=== PATIENT | male | born 1950 | race Caucasian/White ===

== ENCOUNTER 2017-11-22 08:15 | Outpatient (RCR) | payer MEDICARE ==
--- NOTE | 2017-10-17 12:35 | PT INITIAL EVALUATION ---
MEDICAL DIAGNOSIS: Vestibular Hypofunction, Vestibular Schwannoma TREATMENT DIAGNOSIS: Vestibular Hypofunction, Vestibular Schwannoma DATE OF ONSET: 10/08/17 SUBJECTIVE: Pt is a 67 year-old male presenting to PT following a recent diagnosis of left acoustic neuroma resulting in decreased balance as well as hearing loss. Pt was diagnosed via MRI on initially on 09/12/17 and was referred to a specialist on 10/08/17 where the mass was further analyzed. Pt seeks to avoid surgical or radiation intervention through undergoing vestibular up-training assuming the mass is slow growing. Pt reports that his symptoms started approximately 6 months prior and that the hearing and decreased balance has been progressively worsening. Pt received hearing aids within the last month which help. Pt denies any onset of nausea, but reports frequent stumbling with ambulation. Balance is decreased further in dark rooms, when making sharp turns, and in the shower when he has to close his eyes. Pt reports no onset of dizziness with changes in position. REHAB PROBLEM LIST: Decreased Balance Decreased Function Decreased ADL's Decreased Mobility Decreased Gait PREVIOUS MEDICAL HISTORY: See EMR OCCUPATION: Retired Computing Architect OBJECTIVE: Pt has minimal nystagmus from return from lateral gaze B, no resting nystagmus. Special Tests: Corona Halpike (-) B, Vetebral Artery test (-) B Gait: 6 Min Walk Test: 6 laps, gait significant for UE reaching for support on objects, wide EVANGELINA and L trunk leaning and lateral sway. Balance: 4 Stage Balance Test: EO highest level-tandem R 9 sec, L 10 sec, EC- NBOS 4 sec. Other Objective Findings: Dizziness Handicap Inventory (DHI): 38/100 ASSESSMENT: Pt shows signs and symptoms consistent with vestibular schwannoma diagnosis with decreased balance and vestibular hypofunctioning. Physical therapy is indicated to improve vestibular and balance systems to maximize pt potential to decrease the above listed impairments for improved function with ADL's and ambulation. Short Term Goals In 2 weeks pt will improve 6 min walk test to 7 laps with increased stability and without UE reaching secondary to improved balance with ADL's. In 4 weeks pt will improve DHI score to <20/100 indicating improved functional mobility with ADL's from improved balance. In 4 weeks pt will be able to stand with eyes closed for 30 seconds with feet together indicating improved postural balance for ADL's. Patient's Goals Improved balance PLAN: Patient to be seen for Manual Therapy/STM/MET Spinal Stabilization Stretching Neuromuscular Re-ed Closed Chain Program Posture/Body mechanics Gait Trg/Balance Trg Home Exercise Program Therapeutic Activities 3x/Week for 4 Weeks If you have any questions, comments, or concerns about this report or plan, please contact me at . Thank you, Omayra Perez, PT, DPT, CLT MTDD
--- NOTE | 2017-11-09 14:17 | PT PLAN OF CARE ---
Physician: Luis Manuel Mejía MD Patient is being seen: 2-3x/Week Therapist: Omayra Perez, PT, DPT, CLT Medical Diagnosis: Vestibular Hypofunction, Vestibular Schwannoma Treatment Diagnosis: Vestibular Hypofunction, Vestibular Schwannoma Date of Onset: 10/08/17 Date of Initial Evaluation: 10/16/17 Date patient was last seen: 11/09/17 Number of treatments: 10 Number of cancellations/No shows: 0 INTERVENTIONS: Manual Therapy/STM/MET Spinal Stabilization Stretching Neuromuscular Re-ed Closed Chain Program Posture/Body mechanics Gait Trg/Balance Trg Home Exercise Program Therapeutic Activities GOALS: In 2 weeks pt will improve 6 min walk test to 7 laps with increased stability and without UE reaching secondary to improved balance with ADL's. MET In 4 weeks pt will improve DHI score to <20/100 indicating improved functional mobility with ADL's from improved balance. MET In 4 weeks pt will be able to stand with eyes closed for 30 seconds with feet together indicating improved postural balance for ADL's. MET PATIENT'S GOAL: Improved balance Status of Patient's Goals: 3/3 MET Patient Compliance: Excellent Prognosis: Good Reasons for continuing therapy: Pt shows great progress with physical therapy having met 3/3 functional goals. Per pt preference pt to progress to discharge with 2 more weeks of pt performing HEP for maintenance of functional status and progression towards independence with PT support. Lingering deficits remain with pt ambulation in poorly lit environments but without any LOB episodes or falls since starting PT. OBJECTIVE: Pt has minimal nystagmus from return from lateral gaze B, no resting nystagmus. Special Tests: Kaplan Halpike (-) B, Vertebral Artery test (-) B Gait: 6 Min Walk Test: 7.75 laps Balance: 4 Stage Balance Test: EO highest level-SLS 30 sec B, EC highest level- Modified tandem 30 sec B. Other Objective Findings: Dizziness Handicap Inventory (DHI): 18/100 3x/Week for 4 Weeks If you have any questions, comments, or concerns about this report or plan, please contact me at . Thank you, Omayra Perez, PT, DPT, CLT [facility]
[~2017-11-22 08:15] MED LIST: ASPI-1471 PO; CEPH500C24 PO; FINA5TAB64 PO; HYDR-4309 PO; LISI20TA29 PO; RIVA20TA PO; TAMS0.4C25 PO
--- NOTE | 2017-11-22 08:54 | PT PLAN OF CARE ---
Physician: Luis Manuel Mejía MD Patient is being seen: 2-3x/Week Therapist: Omayra Perez, PT, DPT, CLT Medical Diagnosis: Vestibular Hypofunction, Vestibular Schwannoma Treatment Diagnosis: Vestibular Hypofunction, Vestibular Schwannoma Date of Onset: 10/08/17 Date of Initial Evaluation: 10/16/17 Date patient was last seen: 11/22/17 Number of treatments: 12 Number of cancellations/No shows: 0 GOALS: In 2 weeks pt will improve 6 min walk test to 7 laps with increased stability and without UE reaching secondary to improved balance with ADL's. MET In 4 weeks pt will improve DHI score to <20/100 indicating improved functional mobility with ADL's from improved balance. MET In 4 weeks pt will be able to stand with eyes closed for 30 seconds with feet together indicating improved postural balance for ADL's. MET PATIENT'S GOAL: Improved balance Status of Patient's Goals: 3/3 MET Patient Compliance: Excellent Prognosis: Good Reasons for discharge from therapy: Varun is to discharge from physical therapy at this time secondary to completion of 3/3 functional goals. Varun is independent with his HEP at this time and is to continue with program to maintain functional gains in balance and stability. Pt has had no episodes of LOB since initiating treatment and shows good progress with ambulation and stability with ADL's. OBJECTIVE: Special Tests: Corona Halpike (-) B, Vertebral Artery test (-) B Gait: 6 Min Walk Test: 7.75 laps Balance: 4 Stage Balance Test: EO highest level-SLS 30 sec B, EC highest level- Tandem 10 sec R, 4 sec L. Other Objective Findings: Dizziness Handicap Inventory (DHI): 18/100 3x/Week for 4 Week If you have any questions, comments, or concerns about this report or plan, please contact me at . Thank you, Omayra Perez, PT, DPT, CLT JESUS
== END 2017-11-22 18:00 | disposition home or self-care (01) ==
LOC: PT 08:15
PROVIDERS: ATTEND Otolaryngology
DX: H81.92 Unspecified disorder of vestibular function, left ear (principal); H93.3X2 Disorders of left acoustic nerve; Z97.4 Presence of external hearing-aid
CPT/HCPCS: 97162

== ENCOUNTER → 2018-03-13 | Outpatient (CLI) | payer MEDICARE ==
--- NOTE | 2018-03-13 14:04 | RADIOLOGY IMAGING REPORT ---
FACILITY: [facility] [place] PATIENT NAME: Varun Hilliard : 1950 MR: [id number] V: [id number] EXAM DATE: ORDERING PHYSICIAN: MARYAN LINDSEY TECHNOLOGIST: Location: [facility] Patient: Varun Hilliard : 1950 Visit/Account:[id number] Date of Sevice: 03/13/2018 Examination: MR brain and internal auditory canal without contrast. History: Vestibular schwannoma Comparison: September 12, 2017 Technique: Multiplane noncontrast imaging was performed through the brain and internal auditory canal regions. Findings: Diffusion: None Ventricles: Normal Midline shift: None Extraxial fluid: None Midline craniocervical structures: Normal Parenchyma: A few punctate unchanged white matter high signal foci. Vascular flow voids: Normal Orbits and paranasal sinuses: Normal Internal auditory canal regions. Expected fluid signal in the inner air structures. No vestibular aqu educt enlargement. The left internal auditory canal now appears filled by the vestibular schwannoma. There was previously CSF within the medial aspect of the left internal auditory canal which is no sergei sarah present in keeping with interval increase in size of the nodule. Evaluation for interval change o f the nodules otherwise limited given lack of IV contrast on current exam. Impression: Increase in size of the left vestibular schwannoma which now completely fills the left internal audit ory canal. Evaluation of the precise size of the nodule is limited given lack of IV contrast on this exam. Contrast enhanced MR may be warranted for further characterization given interval change. Report Dictated By: Pineda Anderson MD at 03/13/2018 1:53 PM Report E-Signed By: Pineda Anderson MD at 03/13/2018 2:00 PM WSN:[email or web address]
== END ==
LOC: MRI 01:21
PROVIDERS: ATTEND Otolaryngology
DX: D33.3 Benign neoplasm of cranial nerves (principal)
CPT/HCPCS: 70552

== ENCOUNTER → 2018-03-26 | Outpatient (CLI) | payer MEDICARE | LOC: LAB 09:22 | PROVIDERS: ATTEND Urology | DX: Z12.5 Encounter for screening for malignant neoplasm of prostate (principal) | CPT/HCPCS: 36415; G0103; 84153 ==

== ENCOUNTER → 2018-06-25 | Outpatient (CLI) | payer MEDICARE ==
--- NOTE | 2018-06-25 09:19 | EKG ---
FACILITY: [facility] PATIENT NAME: AMANDA ADAIR : [id number] MR: [id number] V: [id number] EXAM DATE: ORDERING PHYSICIAN: CRAIG POPE TECHNOLOGIST: MADDIE Farfan Reason : A-FIB Blood Pressure : / mmHG Vent. Rate : 069 BPM Atrial Rate : 375 BPM P-R Int : 000 ms QRS Dur : 108 ms QT Int : 368 ms P-R-T Axes : 000 -06 050 degrees QTc Int : 394 ms Atrial fibrillation Abnormal ECG When compared with ECG of 07-AUG-2017 12:51, Atrial fibrillation has replaced Sinus rhythm Confirmed by Fredo Rizzo ([id number]) on 06/25/2018 1:08:02 PM Referred By: NIKO Confirmed By:Fredo Bello
== END ==
LOC: RESP 09:10
PROVIDERS: ATTEND Family Medicine
DX: R94.31 Abnormal electrocardiogram [ECG] [EKG] (principal)
CPT/HCPCS: 93005

== ENCOUNTER → 2018-10-18 | Outpatient (CLI) | payer MEDICARE ==
[~2018-10-18] MED LIST changes: -HYDR-4309 PO; +HYDR-653 PO
--- NOTE | 2018-10-18 18:38 | RT STRESS TEST REPORT ---
FACILITY: [facility] PATIENT NAME: AMANDA ADAIR : [id number] MR: [id number] V: [id number] EXAM DATE: ORDERING PHYSICIAN: GARY PHAM TECHNOLOGIST: [employer] Time: 2018-10-18 13:54:19 Total Exercise Time: 00:03:08 Test Indications: AFIB Medications: SEE NUC MED SHEET Protocol: CAR 2 Max HR: 155 BPM 102% of Pred: 151 BPM Max BP: 168/102 mmHG Max Work Load: 4.6 METS Images pending Confirmed by KAYODE OROZCO ([id number]) on 10/18/2018 6:39:07 PM Referred By: Overread By: KAYODE OROZCO
--- NOTE | 2018-10-20 08:38 | RADIOLOGY IMAGING REPORT ---
FACILITY: [facility] [place] PATIENT NAME: Varun Hilliard : 1950 MR: [id number] V: [id number] EXAM DATE: ORDERING PHYSICIAN: GARY PHAM TECHNOLOGIST: Location: [facility] Patient: Varun Hilliard : 1950 Visit/Account:[id number] Date of Sevice: 10/18/2018 EXAMINATION: Single Isotope SPECT Imaging with Exercise and Gated SPECT Imaging DATE OF EXAMINATION: 10/18/2018 DATE OF INTERPRETATION: 10/20/2018 REQUESTING PHYSICIAN: GARY PHAM INDICATION: The patient is a 68-year-old male evaluated for atrial fibrillation. PROCEDURE: After informed consent the patient received an intravenous injection of 12.3 mCi of Tc-9 9m sestamibi followed at the appropriate time interval by rest imaging. The patient then exercised a ccording to the standard Brian protocol for 3:08 minutes achieving 4 METS. Resting heart rate was 81 bpm with a peak heart rate of 155 bpm which is 102 % of maximal predicted heart rate for age. Bloo d pressure at rest was 158 / 106; blood pressure during exercise was 168 / 102. There was no chest p ain during exercise. Exercise was discontinued because of target heart rate obtained. Baseline EKG demonstrates atrial fibrillation with left anterior fascicular block. There were no new EKG changes of ischemia at peak exercise. Approximately one minute and 30 seconds prior to the termination of ex ercise, the patient received an intravenous injection of 29.7 mCi of Tc-99m sestamibi followed by str ess imaging. RAW DATA: Examination of the summed raw data revealed a good quality study. MYOCARDIAL PERFUSION: The tomographic images demonstrate normal perfusion with no evidence of infarc t or ischemia.. GATED IMAGES: The gated images demonstrate slightly reduced ejection fraction at 49%. IMPRESSION: 1. Good quality study 2. Normal myocardial perfusion scan. 3. Slightly reduced LV systolic function; LVEF 49%. 4. Based on the results of this exam, the patient appears to be at low risk for future cardiovascular events, does have poor functional capacity and baseline hypertension however. Report Dictated By: Shree Franco at 10/20/2018 8:27 AM Report E-Signed By: Shree Franco at 10/20/2018 8:34 AM WSN:[id number]
== END ==
LOC: NUC 04:17
PROVIDERS: ATTEND Internal Medicine Clinical Cardiac Electrophysiology
DX: I48.1 Persistent atrial fibrillation (principal)
CPT/HCPCS: 78452; 93017; A9500

== ENCOUNTER → 2018-11-12 | Outpatient (CLI) | payer MEDICARE ==
--- NOTE | 2018-11-12 17:02 | RADIOLOGY IMAGING REPORT ---
FACILITY: [facility] PATIENT NAME: Varun Hilliard : 1950 MR: [id number] V: [id number] EXAM DATE: ORDERING PHYSICIAN: CRAIG POPE TECHNOLOGIST: Location: [facility] [place] Patient: Varun Hilliard : 1950 Visit/Account:[id number] Date of Sevice: 11/12/2018 Exam type: CHEST PA AND LAT History: Bronchitis Comparison: May 15, 2016. Findings: Patient has made a limited inspiratory effort producing crowding the bronchovascular markings bilater ally. There is no evidence of acute appearing focal infiltrates pleural effusions or overt pulmonary edema. Cardiac silhouette is enlarged but unchanged. There are spondylotic changes of the thoracic spine. IMPRESSION: 1. Hypoventilatory changes from a limited inspiration effort No evidence of acute pulmonary consolidation Cardiomegaly unchanged Report Dictated By: Mariaa Good MD at 11/12/2018 4:56 PM Report E-Signed By: Mariaa Good MD at 11/12/2018 4:58 PM WSN:[email or web address]
== END ==
LOC: RAD 16:10
PROVIDERS: ATTEND Family Medicine
DX: J40 Bronchitis, not specified as acute or chronic (principal); I51.7 Cardiomegaly
CPT/HCPCS: 71046

== ENCOUNTER → 2019-02-07 | Outpatient (CLI) | payer MEDICARE | LOC: LAB 11:01 | PROVIDERS: ATTEND Internal Medicine Clinical Cardiac Electrophysiology | DX: I48.1 Persistent atrial fibrillation (principal) | CPT/HCPCS: 36415; 82310; 82374; 82435; 82565; 82947; 84132; 84295; 84520; 85027 ==

== ENCOUNTER → 2019-07-03 | Outpatient (CLI) | payer MEDICARE ==
--- NOTE | 2019-07-03 14:23 | RADIOLOGY IMAGING REPORT ---
FACILITY: [facility] PATIENT NAME: Varun Hilliard : 1950 MR: [id number] V: [id number] EXAM DATE: ORDERING PHYSICIAN: MARYAN LINDSEY TECHNOLOGIST: Location: [facility] Patient: Varun Hilliard : 1950 Visit/Account:[id number] Date of Sevice: 07/03/2019 EXAMINATION: MRI Brain without intravenous contrast, detailed IACs HISTORY: Vestibular schwannoma. COMPARISON: 03/13/2018. 09/12/2017. TECHNIQUE: Multi-planar, multi-sequence brain MRI was performed without IV gadolinium. Thin section imaging was performed in the axial and coronal planes centered on the IACs. FINDINGS: IAC detailed study: Brain stem: Negative. Cerebellopontine angles: Negative. IACs / CN VII and VIII: Slightly decreased size of the left IAC vestibular schwannoma measuring 7 x 3 mm, previously 11 x 5 mm on 03/13/2018. Inner ear: Negative. Middle ear: Negative. Mastoids / petrous apices: Negative. Rest of brain: Stable minimal nonspecific chronic white matter disease. Rightward nasal septal deviat ion. IMPRESSION: 1. Slightly decreased size of the left IAC vestibular schwannoma measuring 7 x 3 mm, previously 11 x 5 mm on 03/13/2018. 2. Stable minimal nonspecific chronic white matter disease in the brain. Report Dictated By: Brody Lazo MD at 07/03/2019 2:07 PM Report E-Signed By: Brody Lazo MD at 07/03/2019 2:14 PM WSN:[email or web address]
== END ==
LOC: MRI 00:55
PROVIDERS: ATTEND Otolaryngology
DX: D33.3 Benign neoplasm of cranial nerves (principal)
CPT/HCPCS: 70552